=== PATIENT | male | born 1955 | race Caucasian/White ===

== ENCOUNTER 2018-10-02 00:51 | Emergency (ER) | payer OTHER ==
[~2018-10-02] VITALS: Ht 170.2 cm; Wt 80.3 kg
[~2018-10-02 00:51] MED LIST: ALBUTEROL2.5 MG/3 M INH; CLARITIN10 MG PO; EFFEXOR XR37.5 MG PO; LISINOPRIL40 MG PO; METHOCARBAMOL500 MG PO; METOPROLOL TART25 MG PO; PRILOSEC20 MG PO; PROAIR HFA8.5 GM IH; SERTRALINE HCL50 MG PO; SIMVASTATIN80 MG PO; SINGULAIR10 MG PO; TERBINAFINE HC250 MG PO
== END 2018-10-02 02:49 | disposition home or self-care (01) ==
LOC: ED 00:51
DX: F10.129 Alcohol abuse with intoxication, unspecified (principal); I10 Essential (primary) hypertension; Z88.2 Allergy status to sulfonamides; Z88.0 Allergy status to penicillin; Z91.018 Allergy to other foods; Z91.048 Other nonmedicinal substance allergy status; Z91.013 Allergy to seafood; Z79.899 Other long term (current) drug therapy
CPT/HCPCS: 80053; 85025; 96360; 99284-25; G0480; J7030

== ENCOUNTER 2020-03-01 15:07 | Emergency (ER) | payer OTHER ==
[~2020-03-01] VITALS: Ht 170.2 cm; Wt 80.3 kg
[2020-03-01] MEDS ORDERED: DECADRON4 MG PO (19:30)
[2020-03-01] MEDS ORDERED: ONDANSETRON ODT8 MG PO (19:30)
== END 2020-03-01 20:06 | disposition home or self-care (01) ==
LOC: ED 15:07
DX: U07.1 COVID-19 (principal); J45.901 Unspecified asthma with (acute) exacerbation; I10 Essential (primary) hypertension; Z88.2 Allergy status to sulfonamides; Z88.8 Allergy status to other drugs, medicaments and biological substances; Z91.018 Allergy to other foods; Z88.0 Allergy status to penicillin; Z91.013 Allergy to seafood; Z79.899 Other long term (current) drug therapy
CPT/HCPCS: 71045; 80053; 83880; 84484; 85025; 85379; 96374; 96375; 99285-25; C9803; J1100; J2405; J7030; U0003

== ENCOUNTER 2020-04-04 18:49 | Emergency (ER) | payer OTHER ==
[~2020-04-04] VITALS: Ht 170.2 cm; Wt 77.1 kg
[~2020-04-04 18:49] MED LIST changes: +DECADRON4 MG PO; +ONDANSETRON ODT8 MG PO
== END 2020-04-04 21:08 | disposition home or self-care (01) ==
LOC: ED 18:49
DX: G43.909 Migraine, unspecified, not intractable, without status migrainosus (principal); I10 Essential (primary) hypertension; J45.909 Unspecified asthma, uncomplicated; Z88.2 Allergy status to sulfonamides; Z88.8 Allergy status to other drugs, medicaments and biological substances; Z88.0 Allergy status to penicillin; Z91.018 Allergy to other foods; Z79.899 Other long term (current) drug therapy
CPT/HCPCS: 70450; 71045; 80053; 85025; 96374; 96375; 99284-25; J1200; J1885; J2765; J7030

== ENCOUNTER 2020-09-05 11:27 | Emergency (ER) | payer OTHER ==
[2020-09-05] MEDS ORDERED: METOPROLOL SUCC50 MG PO (15:15)
[2020-09-05] MEDS ORDERED: VENTOLIN HFA18 GM INH (15:15)
[2020-09-05] MEDS ORDERED: LOSARTAN POTAS100 MG PO (15:15)
[2020-09-05] MEDS ORDERED: CHLORDIAZEPOXID25 MG PO (15:15)
--- NOTE | 2020-09-06 10:54 | EKG ---
[facility] [address] [facility] [place], [place] [address] Signed Sinus tachycardia Left axis deviation Anterior infarct , age undetermined Abnormal ECG When compared with ECG of 02-SEP-2016 16:05, Vent. rate has increased BY 65 BPM Questionable change in QRS duration Anterior infarct is now present Confirmed by TRISTIN NIEVES DO ([id number]) on 09/06/2020 10:54:44 AM Electronically Signed By: TRISTIN NIEVES DO 09/06/20 1054 PATIENT NAME: FAVIOLA VO Electrocardiogram DATE OF : 53 PHYSICIAN: TRISTIN NIEVES DO REPORT #: [id number] REPORT IS CONFIDENTIAL AND NOT TO BE RELEASED WITHOUT AUTHORIZATION
== END 2020-09-05 15:30 | disposition home or self-care (01) ==
LOC: ED 11:27
DX: F10.129 Alcohol abuse with intoxication, unspecified (principal); Y90.7 Blood alcohol level of 200-239 mg/100 ml; I10 Essential (primary) hypertension; J45.909 Unspecified asthma, uncomplicated; Z88.2 Allergy status to sulfonamides; Z88.0 Allergy status to penicillin; Z91.013 Allergy to seafood; Z91.018 Allergy to other foods; Z79.899 Other long term (current) drug therapy
CPT/HCPCS: 70450; 80053; 85025; 93005; 93010; 99284-25; J7030

== ENCOUNTER 2022-09-08 14:07 | Emergency (ER) | payer MEDICARE ==
[~2022-09-08] VITALS: Ht 170.2 cm; Wt 73.0 kg
[~2022-09-08 14:07] MED LIST changes: +CHLORDIAZEPOXID25 MG PO; +LOSARTAN POTAS100 MG PO; +METOPROLOL SUCC50 MG PO; +VENTOLIN HFA18 GM INH
[2022-09-08] MEDS ORDERED: ONDANSETRON ODT8 MG PO (18:59)
[2022-09-08] MEDS ORDERED: CHLORDIAZEPOXID25 MG PO (18:59)
[2022-09-08 19:35] VITALS: BP 154/96
== END 2022-09-08 19:38 | disposition home or self-care (01) ==
LOC: ED 14:07
DX: F10.10 Alcohol abuse, uncomplicated (principal); Y90.8 Blood alcohol level of 240 mg/100 ml or more; I10 Essential (primary) hypertension; J45.909 Unspecified asthma, uncomplicated; Z88.2 Allergy status to sulfonamides; Z91.018 Allergy to other foods; Z88.0 Allergy status to penicillin; Z91.013 Allergy to seafood
CPT/HCPCS: 36415; 71045; 80053; 81001; 85025; 99284-25; A9270; G0480; J7030

== ENCOUNTER 2022-09-17 19:09 | Emergency (ER) | payer MEDICARE ==
[~2022-09-17] VITALS: Ht 170.2 cm; Wt 75.3 kg
--- OUTSIDE RECORDS SUMMARY | 2022-09-17 19:14 | XMS ---
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 EGiovanna VISIT COUNT (12 MO.) 2 [facility] TOTAL 2 NOTE: Visits indicate total known visits. ED/UCC VISIT TRACKING (12 MO.) 09/17/2022 19:12 AL[facility] Salgado [place] TYPE: Emergency COMPLAINT: - BREATHING AND HEART RATE OFF 09/08/2022 14:08 AL[facility] Salgado [place] TYPE: Emergency COMPLAINT: - DIFFICULTY BREATHING DIAGNOSES: - Alcohol abuse, uncomplicated - Allergy status to penicillin - Allergy status to sulfonamides - Allergy to other foods - Allergy to seafood - Blood alcohol level of 240 mg/100 ml or more - Essential (primary) hypertension - Shortness of breath - Unspecified asthma, uncomplicated INPATIENT VISIT TRACKING (12 MO.) No inpatient visits to display in this time frame [email or web address]
[2022-09-17] MEDS ORDERED: LOSARTAN-HCTZ1 EAC1 PO (19:22)
[2022-09-17] MEDS ORDERED: VENLAFAXINE H37.5 MG PO (19:22)
[2022-09-17] MEDS ORDERED: MONTELUKAST SOD10 MG PO (19:24)
[2022-09-17] MEDS ORDERED: LIPITOR80 MG PO (19:24)
[2022-09-17] MEDS ORDERED: BISOPROLOL FUMA10 MG PO (19:24)
[2022-09-17] MEDS ORDERED: FLONASE ALLERG9.9 ML NAS (21:37)
[2022-09-17 21:50] VITALS: BP 152/83
--- NOTE | 2022-09-18 07:24 | EKG ---
[facility] [address] [place] [address] Signed Sinus bradycardia Left axis deviation Abnormal ECG When compared with ECG of 05-SEP-2020 13:27, Vent. rate has decreased BY 74 BPM Confirmed by EDIN SIDDIQUI MD ([id number]) on 09/18/2022 7:24:12 AM Electronically Signed By: EDIN SIDDIQUI MD 09/18/22 0724 PATIENT NAME: FAVIOLA VO Electrocardiogram DATE OF : 53 PHYSICIAN: EDIN SIDDIQUI MD REPORT #: [id number] REPORT IS CONFIDENTIAL AND NOT TO BE RELEASED WITHOUT AUTHORIZATION
== END 2022-09-17 21:50 | disposition home or self-care (01) ==
LOC: ED 19:09
DX: I16.0 Hypertensive urgency (principal); I10 Essential (primary) hypertension; J45.909 Unspecified asthma, uncomplicated; Z88.0 Allergy status to penicillin; Z91.013 Allergy to seafood; Z88.2 Allergy status to sulfonamides; Z88.8 Allergy status to other drugs, medicaments and biological substances; Z91.018 Allergy to other foods; Z91.048 Other nonmedicinal substance allergy status; Z79.899 Other long term (current) drug therapy
CPT/HCPCS: 36415; 71045; 80053; 81001; 83880; 84484; 85025; 93005; 93010; 96374; 99284-25; J0360

== ENCOUNTER 2023-03-30 22:07 | Emergency (ER) | payer OTHER, MEDICARE ==
[~2023-03-30] VITALS: Ht 170.2 cm; Wt 75.3 kg
[~2023-03-30 22:07] MED LIST changes: +BISOPROLOL FUMA10 MG PO; +FLONASE ALLERG9.9 ML NAS; +LIPITOR80 MG PO; +LOSARTAN-HCTZ1 EAC1 PO; +MONTELUKAST SOD10 MG PO; +VENLAFAXINE H37.5 MG PO
[2023-03-31 05:20] VITALS: BP 130/95
== END 2023-03-31 05:20 | disposition home or self-care (01) ==
LOC: ED 22:07
DX: S01.81XA Laceration without foreign body of other part of head, initial encounter (principal); I10 Essential (primary) hypertension; E78.00 Pure hypercholesterolemia, unspecified; J45.909 Unspecified asthma, uncomplicated; Z79.899 Other long term (current) drug therapy; Z88.0 Allergy status to penicillin; Z88.2 Allergy status to sulfonamides; Z88.8 Allergy status to other drugs, medicaments and biological substances; Z91.013 Allergy to seafood; Z91.018 Allergy to other foods; Z91.048 Other nonmedicinal substance allergy status; W18.30XA Fall on same level, unspecified, initial encounter
CPT/HCPCS: 70450; 72125; 90715

== ENCOUNTER 2024-02-07 05:41 | Day surgery (SDC) | payer MEDICARE, BC ==
[2024-02-01 11:26] VITALS: BP 123/89
[~2024-02-07] VITALS: Ht 170.2 cm; Wt 77.3 kg
[~2024-02-07 05:41] MED LIST changes: +LACTATED RINGER'S 1,000 ML IV SCH; +PREDNISOLONE ACE5 M1 OP; +PRILOSEC OTC20 MG PO; +ZESTRIL10 MG
[2024-02-07 06:02] VITALS: BP 119/81
[2024-02-07] MEDS ORDERED: VENTOLIN HFA18 GM INH (06:06)
[2024-02-07] MEDS ORDERED: IBLOOD GLUCOSE TEST STRIP 1 EA TEST VI PRN (07:00)
[2024-02-07] MEDS ORDERED: LIDOCAINE HCL 1% 5 ML SDV INJ ONE (07:00)
[2024-02-07] MEDS ORDERED: LIDOCAINE HCL 2% 5 ML SDV ONE (07:25)
[2024-02-07] MEDS ORDERED: propofoL 200 MG/20 ML VIAL ONE ×2 (07:25→08:05)
[2024-02-07] MEDS ORDERED: GLYCOPYRROLATE 1 MG/5 ML MDV ONE (08:05)
[2024-02-07 08:49] VITALS: BP 142/98
--- NOTE | 2024-02-07 09:19 | NUR ---
02/07/24 0919 Ramona Mathews 0812- PT ARRIVES TO THE PACU WITH A NATURAL AIRWAY AND 2L OF O2 WITH A NC. PT IS LAYING ON LEFT SIDE. RESP EVEN AND UNLABORED. PT IS NOT REACTIVE TO VERBAL AND TACTILE STIMULI. ALL MONITORS PU TIN PLACE. VSS. ABDOMEN SOFT AND NONDISTENDED. 0824-PT OPENS EYES WITH NO STIMULI. PT REORIENTED PT PACU. O2 REMOVED AND TURNED OFF. PT DENIES PAIN AND NAUSEA. 0825- MD AT BEDSIDE TALKING WITH PT. 0837- HOB INCREASED AND PT SIPPING ON WATER. PT HAS SOME DIZZINESS AND ENCOURAGED TO MOVE SLOW. 0840- DC INSTRUCTIONS GIVEN. NO QUESTIONS OR CONCERNS. PT GETTING DRESSED INDEPENDENTLY WITH NO ISSUE. 0859- PT DC'D FROM PACU. PT BROUGHT TO IN THE FRONT OF THE HOSPITAL. PT SITTING IN FRONT WITH GAIT IS STEADY AND EVEN. WEB SITE SPECIALIST TO CALL FOR RIDE. ALL BELONGINGS WITH PT.
--- NOTE | 2024-02-07 12:16 | OR ---
[facility] [address] [place], [place] [address] Signed DATE OF OPERATION: 02/07/2024 SURGEON: Karyna Vasquez MD PREOPERATIVE DIAGNOSES: 1. Dysphagia and weight loss. 2. CT scan findings of thickened distal esophagus. POSTOPERATIVE DIAGNOSES: 1. No evidence of esophageal neoplasm. 2. Mild chronic distal esophageal stricture and midesophageal felinization. 3. Duodenitis. PROCEDURES: 1. Esophagogastroduodenoscopy with biopsy. 2. Esophageal dilation by Amauri over the wire technique single pass 51-Icelandic. ANESTHESIA: Intravenous sedation propofol; Jaye Smith CRNA. INDICATION: This 68-year-old white man is a patient of Dr. Arora. He presented to the emergency room in September with significant dysphagia. This was on October 08, 2023. The patient canceled the visit planned soon after that evaluation and is seen recently by me on January 17, 2024. The patient describes a 15-pound weight loss over the past several months. A CT scan had been performed showing a small hiatal hernia and circumferential thickening of the distal esophagus. He had moderate coronary artery atherosclerosis as well. He has been on a PPI medication since that time. He continues to have some solid-food dysphagia, but no dysphagia to liquids. The patient does have dentures, but he does not use them and notes that his swallowing problems are worsened when he does not chew his food well, which is usual. He has significant shortness of breath and COPD and uses an inhaler. Administration of omeprazole has had no significant improvement to his dysphagia he says. He is admitted at this time to undergo upper endoscopy and possible dilation. He understands the risk of bleeding, infection, and perforation. FINDINGS: He did not have esophageal neoplasm. There is low-grade distal esophageal stricture, but nothing particularly worrisome in appearance. There appeared to be mild felinization of the mid esophagus and the possibility of eosinophilic esophagitis is also considered. He did have duodenitis but no ulcer. CLOtest was equivocal 15 minutes Electronically Signed By: KARYNA VASQUEZ MD 02/07/24 1216 PATIENT NAME: FAVIOLA VO OPERATIVE REPORT DATE OF : 53 REPORT #: [id number] PHYSICIAN: KARYNA VASQUEZ MD PCP: TEE ARORA MD REPORT IS CONFIDENTIAL AND NOT TO BE RELEASED WITHOUT AUTHORIZATION [facility] [address] [place], [place] [address] Signed post procedure. Esophageal dilation to 51-Icelandic with an over the wire [place] Citizen dilator system was undertaken without complication. PROCEDURE IN DETAIL: The patient was brought to the surgical endoscopy suite, placed in the lateral decubitus position. A bite block was placed and he was given intravenous sedation by the state appellate clerk with propofol infusional technique. Airway support was important as he does have some desaturation with sedation. An Olympus video upper endoscope was passed in the hypopharynx. The vocal cords were normal. Scope was advanced to the esophagus. Passage to the esophagus was without impediment. There was no gross lesion on the distal esophagus upon passage of the scope. Entry to the stomach showed mild chronic gastritis but prepyloric erosive changes. The pylorus itself was widely patent without distortion or obstruction. Scope was passed in the duodenum, which clearly showed duodenitis. There was no ulceration however. Biopsies were taken of the duodenum. The scope was withdrawn and biopsies taken of the antrum for both FRED and pathologic testing. Retroflexed view was undertaken showing a marginal flap valve but no sign of large hiatal hernia proper. The scope was withdrawn to the distal esophagus and careful inspection showed no sign of neoplasm or Acosta's epithelium per se. Withdrawal of scope to the midesophagus showed mild felinization and the possibility of eosinophilic esophagitis is also considered. Biopsies were then taken of the distal esophagus and mid esophagus. The scope was advanced once again to the antrum and a coil spring tipped wire from the [place] Citizen over the wire dilator system passed through the operating channel of the scope. The wire was stabilized and the scope carefully withdrawn and removed. A 51-Icelandic [place] Citizen over the wire dilator was then passed over the wire markedly lubricated and advanced over the wire to the appropriate distance. The scope and the wire were then removed in continuity. The bite block was replaced and the scope once again passed down the esophagus showing no sign of complication. The esophagus appeared widely patent and open. The patient was ultimately allowed to emerge from sedation, then taken to the recovery room in good condition. CONCLUDING DIAGNOSES: 1. Duodenitis with associated antral gastritis. Mild distal esophagitis and low-grade stricture (dilated). 2. Midesophageal felinization suspicious though not diagnostic for eosinophilic esophagitis. PLAN: He will continue with his omeprazole as prescribed. I will see him back in the office in 4 to 6 weeks and we will assess his improvement or lack thereof from dilation. If biopsy should show eosinophilic esophagitis, appropriate therapy would be initiated. Electronically Signed By: KARYNA VASQUEZ MD 02/07/24 1216 PATIENT NAME: FAVIOLA VO OPERATIVE REPORT DATE OF : 53 REPORT #: [id number] PHYSICIAN: KARYNA VASQUEZ MD PCP: TEE ARORA MD REPORT IS CONFIDENTIAL AND NOT TO BE RELEASED WITHOUT AUTHORIZATION [facility] [address] [place], [place] [address] Signed MD CHRISTINE Espinal/MISHEL /[id number] cc: Dr. Arora Copies: ~ Electronically Signed By: KARYNA VASQUEZ MD 02/07/24 1216 PATIENT NAME: FAVIOLA VO J OPERATIVE REPORT DATE OF : 53 REPORT #: [id number] PHYSICIAN: KARYNA VASQUEZ MD PCP: TEE ARORA MD REPORT IS CONFIDENTIAL AND NOT TO BE RELEASED WITHOUT AUTHORIZATION
--- NOTE | 2024-02-08 13:08 | PATH ---
[facility] [address] [place], [place] [address] Signed SPECIMEN(S): A DUODENUM BIOPSY SPECIMEN(S): B ANTRUM BIOPSY SPECIMEN(S): C DISTAL ESOPHAGUS BIOPSY SPECIMEN(S): D MID ESOPHAGUS BIOPSY SPECIMEN SOURCE: A. DUODENUM BIOPSY B. ANTRUM BIOPSY C. DISTAL ESOPHAGUS BIOPSY D. MID ESOPHAGUS BIOPSY CLINICAL HISTORY: Dysphagia FINAL PATHOLOGIC DIAGNOSIS: A. Duodenum biopsy: - Benign duodenal mucosa, negative for specific diagnostic abnormality. B. Antrum biopsy: - Benign gastric mucosa with focal slight chronic inflammation. - Negative for evidence of Helicobacter organisms on routine HE stained sections. - Fragments of benign duodenal mucosa, negative for pathologic inflammation. C. Distal esophagus biopsy: - Benign esophageal and gastric mucosa with minimal inflammation. - Negative for increased epithelial eosinophils. - Negative for specialized intestinal metaplasia on scant glandular epithelium. D. Mid esophagus biopsy: - Benign esophageal epithelium, negative for increased epithelial eosinophils. JVR:slc MICROSCOPIC EXAMINATION: Histologic sections of all submitted blocks are examined by light microscopy. These findings, together with the gross examination, support the pathologic diagnosis. GROSS DESCRIPTION: A. The specimen, labeled and designated "[place], duodenum biopsy," is received in formalin and consists of one ellis soft tissue fragment, 0.2 cm. Entirely submitted in (A1). B. The specimen, labeled and designated "[place], antrum biopsy," is PATIENT NAME: FAVIOLA VO PATHOLOGY DATE OF : 53 REPORT #: [id number] PHYSICIAN: [employer] PATHOLOGY PCP: TEE ARORA MD REPORT IS CONFIDENTIAL AND NOT TO BE RELEASED WITHOUT AUTHORIZATION [facility] [address] [place], [place] [address] Signed received in formalin and consists of three ellis soft tissue fragments, ranging from 0.3-0.7 cm. Entirely submitted in (B1). C. The specimen, labeled and designated "[place], distal esophagus biopsy," is received in formalin and consists of two ellis soft tissue fragments, ranging from 0.2-0.3 cm. Entirely submitted in (C1). D. The specimen, labeled and designated "[place], mid esophagus biopsy," is received in formalin and consists of two ellis soft tissue fragments, ranging from 0.2-0.3 cm. Entirely submitted in (D1). VB (under the direct supervision of a pathologist) The Gross Description was prepared using a voice recognition system. The report was reviewed for accuracy; however, sound-alike word errors, addition and/or deletions may occur. If there is any question about this report, please contact Client Services. PERFORMING LABORATORY: Technical component was performed by [facility], [address] [place] [id number] (CLIA# [id number]). Professional interpretation was performed by [facility] - [facility], [address] [place] [id number] (CLIA#: [id number]). Diagnostician: Misael Gomez MD Pathologist Electronically Signed 02/08/2024 Copies: ~ PATIENT NAME: FAVIOLA VO PATHOLOGY DATE OF : 53 REPORT #: [id number] PHYSICIAN: [facility] PCP: TEE ARORA MD REPORT IS CONFIDENTIAL AND NOT TO BE RELEASED WITHOUT AUTHORIZATION
== END 2024-02-07 08:59 | disposition home or self-care (01) ==
LOC: DS 05:41 → OPS 05:41 → DS 10:00 → OPS 10:00
PROVIDERS: ATTEND Surgery
PROC: 0DB68ZX Excision of Stomach, Via Natural or Artificial Opening Endoscopic, Diagnostic (ICD-10-PCS; 2024-02-07)
PROC: 0DB28ZX Excision of Middle Esophagus, Via Natural or Artificial Opening Endoscopic, Diagnostic (ICD-10-PCS; 2024-02-07)
PROC: 0DB38ZX Excision of Lower Esophagus, Via Natural or Artificial Opening Endoscopic, Diagnostic (ICD-10-PCS; 2024-02-07)
PROC: 0DB98ZX Excision of Duodenum, Via Natural or Artificial Opening Endoscopic, Diagnostic (ICD-10-PCS; principal; 2024-02-07 07:30)
DX: K29.80 Duodenitis without bleeding (principal); K29.50 Unspecified chronic gastritis without bleeding; K22.2 Esophageal obstruction; J44.9 Chronic obstructive pulmonary disease, unspecified; I10 Essential (primary) hypertension; K21.00 Gastro-esophageal reflux disease with esophagitis, without bleeding; F10.10 Alcohol abuse, uncomplicated; R63.4 Abnormal weight loss
CPT/HCPCS: 00813; 88305; J2003; J2704; J7121

== ENCOUNTER 2024-03-25 15:51 | Emergency (ER) | payer MEDICARE, BC ==
[~2024-03-25] VITALS: Ht 170.2 cm; Wt 81.4 kg
[~2024-03-25 15:51] MED LIST changes: -LACTATED RINGER'S 1,000 ML IV SCH
[2024-03-25 16:13] LABS: BASOPHILS 1.2 % (0-2); EOSINOPHILS 5.3 % (0-6); HEMATOCRIT 45.3 % (35.0-50.0); HEMOGLOBIN 15.9 g/dL (12.0-18.0); LYMPHOCYTES 29.2 % (24-44); MCH 31.5 (27-36); MCHC 35.2 g/dl (30-36); MCV 89.4 fl (81-99); MONOCYTES 6.5 % (0-12); NEUTROPHILS 57.8 % (39-80); PLATELET COUNT 229 K/uL (140-440); RBC 5.06 M/ul (4.3-5.7)
[2024-03-25 16:23] LABS: INR 1.09 (0.80-1.30); PROTIME 13.7 Sec (11.2-14.2)
[2024-03-25 16:25] LABS: PARTIAL THROMBOPLASTIN TIME 25.3 Sec (22.9-41.3)
[2024-03-25 16:31] LABS: ALBUMIN 3.6 g/dL (3.4-5.0); ALBUMIN/GLOBULIN RATIO 1.2 (1.1-2.4); ANION GAP 15.9 (7-21); BILIRUBIN, TOTAL 0.2 ng/dL (0.2-1.0); CALCIUM 8.3 mg/dL (8.5-10.1); POTASSIUM 3.9 mmol/L (3.5-5.1); PROTEIN, TOTAL 6.6 g/dL (6.4-8.2)
[2024-03-25 17:13] LABS: BILIRUBIN, URINE NEGATIVE (negative); BLOOD/HGB, URINE NEGATIVE (Negative); KETONE, URINE NEGATIVE (Negative); LEUK ESTERASE, URINE NEGATIVE (negative); NITRITE, URINE NEGATIVE (negative); PH, URINE 5.5 (5-7)
[2024-03-25 17:18] LABS: BACTERIA, URINE NONE SEEN /hpf (negative); CASTS, URINE NONE SEEN \\lpf; COLLECTION TYPE, URINE CLEAN CATCH; CRYSTALS, URINE NONE SEEN (0-1+); EPITHELIAL CELLS, URINE SQUAMOUS 1+ /lpf (0-1+); RED BLOOD CELLS, URINE 0-1 /hpf (0-5); WHITE BLOOD CELLS, URINE 0-1 /HPF (0-5)
[2024-03-25 17:19] LABS: REFLEX CULTURE, URINE No (No)
[2024-03-25 17:30] LABS: AMPHETAMINES, URINE NEGATIVE (NEGATIVE); BARBITURATES, URINE NEGATIVE (NEGATIVE); BENZODIAZEPINE, URINE NEGATIVE (NEGATIVE); BUPRENORPHINE, URINE NEGATIVE (NEGATIVE); CANNABINOID, URINE NEGATIVE (NEGATIVE); COCAINE, URINE NEGATIVE (NEGATIVE); ECSTASY, URINE NEGATIVE (NEGATIVE); FENTANYL, URINE NEGATIVE (NEGATIVE); METHADONE, URINE NEGATIVE (NEGATIVE); OPIATES, URINE NEGATIVE (NEGATIVE); OXYCODONE, URINE NEGATIVE (NEGATIVE); PHENCYCLIDINE, URINE NEGATIVE (NEGATIVE)
[2024-03-25 20:00] VITALS: BP 146/99
--- NOTE | 2024-03-25 21:01 | EKG ---
[facility] [address] [facility] [place] [address] Signed Normal sinus rhythm with sinus arrhythmia Left axis deviation Inferior infarct , age undetermined Abnormal ECG No previous ECGs available Confirmed by Angel Harley MD ([id number]) on 03/25/2024 9:01:36 PM Electronically Signed By: ANGEL HARLEY DO 03/25/242100 PATIENT NAME: YELENASRINIVASAFRANDariuszFAVIOLA Electrocardiogram DATE OF : 53 PHYSICIAN: ANGEL HARLEY DO REPORT #: [id number] REPORT IS CONFIDENTIAL AND NOT TO BE RELEASED WITHOUT AUTHORIZATION
== END 2024-03-25 20:00 | disposition home or self-care (01) ==
LOC: ED 15:51
PROVIDERS: Emergency Medicine
DX: F10.929 Alcohol use, unspecified with intoxication, unspecified (principal); Y90.8 Blood alcohol level of 240 mg/100 ml or more; I10 Essential (primary) hypertension; J45.909 Unspecified asthma, uncomplicated; Z88.0 Allergy status to penicillin; Z88.2 Allergy status to sulfonamides; Z91.013 Allergy to seafood; Z91.018 Allergy to other foods; Z91.048 Other nonmedicinal substance allergy status; Z79.899 Other long term (current) drug therapy
CPT/HCPCS: 36415; 70450; 70496; 70498; 71045; 80053; 80307; 81001; 84484; 85025; 85610; 85730; 93005; 93010; 99285-25; G0480; Q9967

== ENCOUNTER 2024-07-31 00:27 | Emergency (ER) | payer MEDICARE ==
[~2024-07-31] VITALS: Ht 170.2 cm; Wt 71.1 kg
[2024-07-31 01:08] LABS: BASOPHILS 0.9 % (0-2); EOSINOPHILS 8.6 % (0-6); HEMATOCRIT 47.1 % (35.0-50.0); HEMOGLOBIN 16.6 g/dL (12.0-18.0); LYMPHOCYTES 28.9 % (24-44); MCH 32.3 (27-36); MCHC 35.3 g/dl (30-36); MCV 91.6 fl (81-99); MONOCYTES 10.1 % (0-12); NEUTROPHILS 51.5 % (39-80); PLATELET COUNT 142 K/uL (140-440); RBC 5.15 M/ul (4.3-5.7); RDW 15.5 (10.5-15.0)
[2024-07-31 01:22] LABS: ALBUMIN 3.7 g/dL (3.4-5.0); ALBUMIN/GLOBULIN RATIO 1.32 (1.1-2.4); ANION GAP 12.2 (7-21); BILIRUBIN, TOTAL 0.4 mg/dL (0.2-1.0); BUN/CREATININE RATIO 12.9 (6.0-28.6); CALCIUM 8.5 mg/dL (8.5-10.1); CREATININE, SERUM 0.93 mg/dL (0.70-1.30); MAGNESIUM 1.9 mg/dL (1.8-2.4); POTASSIUM 3.2 mmol/L (3.5-5.1); PROTEIN, TOTAL 6.5 g/dL (6.4-8.2)
[2024-07-31] MEDS ORDERED: NALTREXONE HCL50 MG PO (02:41)
[2024-07-31 03:05] VITALS: BP 114/81
== END 2024-07-31 03:04 | disposition home or self-care (01) ==
LOC: ED 00:27
PROVIDERS: Family Medicine
DX: F10.129 Alcohol abuse with intoxication, unspecified (principal); I10 Essential (primary) hypertension; J45.909 Unspecified asthma, uncomplicated
CPT/HCPCS: 36415; 80053; 83735; 85025; 99284

== ENCOUNTER 2024-08-30 13:24 | Emergency (ER) | payer MEDICARE ==
[~2024-08-30] VITALS: Ht 170.2 cm; Wt 73.3 kg
[~2024-08-30 13:24] MED LIST changes: +NALTREXONE HCL50 MG PO
--- OUTSIDE RECORDS SUMMARY | 2024-08-30 13:31 | XMS ---
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 Gema has no Care Guidelines for this patient. Chelsey VISIT COUNT (12 MO.) 4 [facility] TOTAL 4 NOTE: Visits indicate total known visits. ED/[facility] VISIT TRACKING (12 MO.) [facility] [place] [facility] COMPLAINT: - DIFFICULT BREATHING 07/31/2024 00:28 [facility] [place] TYPE: Emergency COMPLAINT: - FALL DIAGNOSES: - Alcohol abuse with intoxication, unspecified - Essential (primary) hypertension - Unspecified asthma, uncomplicated 03/25/2024 15:51 [facility] [place] TYPE: Emergency COMPLAINT: - FALL DIAGNOSES: - Alcohol use, unspecified with intoxication, unspecified - Allergy status to penicillin - Allergy status to sulfonamides - Allergy to other foods - Allergy to seafood - Blood alcohol level of 240 mg/100 ml or more - Diplopia - Essential (primary) hypertension - Other shelter (current) drug therapy - Other nonmedicinal substance allergy status - Unspecified asthma, uncomplicated 10/08/2023 12:28 [facility] [place] TYPE: Emergency COMPLAINT: - THROAT ISSUES DIAGNOSES: - Allergy status to other drugs, medicaments and biological substances - Allergy status to penicillin - Allergy status to sulfonamides - Allergy to other foods - Allergy to seafood - Diaphragmatic hernia without obstruction or gangrene - Dysphagia, unspecified - Esophageal obstruction - Essential (primary) hypertension - Gastro-esophageal reflux disease without esophagitis - 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
[2024-08-30] MEDS ORDERED: IPRATROPIUM BROMIDE 2.5 ML VIAL INH ONE (13:45)
[2024-08-30 13:48] LABS: BASOPHILS 1.3 % (0.2-1.2); EOSINOPHILS 5.4 % (0.8-7.0); HEMATOCRIT 47.5 % (40.1-51.0); HEMOGLOBIN 16.2 g/dL (13.7-17.5); MCH 31.4 PG (25.7-32.2); MCHC 34.1 g/dL (32.3-36.5); MCV 92.1 fL (79.0-92.2); MONOCYTES 6.5 % (5.3-12.2); NEUTROPHILS 53.9 % (34.0-67.9); PLATELET COUNT 206 K/uL (163-337); RBC 5.16 M/uL (4.63-6.08)
[2024-08-30 14:05] LABS: ALBUMIN 3.5 g/dL (3.4-5.0); ALBUMIN/GLOBULIN RATIO 1.13 (1.1-2.4); ANION GAP 14.1 (7-21); BILIRUBIN, TOTAL 0.2 mg/dL (0.2-1.0); BUN/CREATININE RATIO 16.12 (6.0-28.6); CALCIUM 8.1 mg/dL (8.5-10.1); CREATININE, SERUM 0.93 mg/dL (0.70-1.30); POTASSIUM 3.1 mmol/L (3.5-5.1); PROTEIN, TOTAL 6.6 g/dL (6.4-8.2)
[2024-08-30] MEDS ORDERED: ALBUTEROL/IPRATROPIUM 3 ML NEB INH ONE (14:15)
[2024-08-30 16:04] VITALS: BP 121/76
--- NOTE | 2024-08-30 21:40 | EKG ---
[facility] [address] [place] [address] Signed Normal sinus rhythm with sinus arrhythmia Left axis deviation Abnormal ECG When compared with ECG of 25-MAR-2024 16:09, No significant change was found Confirmed by Wilman Fink MD () on 08/30/2024 9:40:26 PM Electronically Signed By: WILMAN FINK MD 08/30/242139 PATIENT NAME: YELENASHERWINFAVIOLA Electrocardiogram DATE OF : 53 PHYSICIAN: WILMAN FINK MD REPORT #: [id number] REPORT IS CONFIDENTIAL AND NOT TO BE RELEASED WITHOUT AUTHORIZATION
== END 2024-08-30 16:06 | disposition home or self-care (01) ==
LOC: ED 13:24
PROVIDERS: Emergency Medicine
DX: F10.129 Alcohol abuse with intoxication, unspecified (principal); Y90.8 Blood alcohol level of 240 mg/100 ml or more; I10 Essential (primary) hypertension; J45.909 Unspecified asthma, uncomplicated; Z91.013 Allergy to seafood; Z91.018 Allergy to other foods; Z91.010 Allergy to peanuts; Z79.899 Other long term (current) drug therapy; Z88.0 Allergy status to penicillin
CPT/HCPCS: 36415; 70450; 71045; 80053; 83880; 84484; 85025; 93005; 93010; 94640; 99285-25; G0480

== ENCOUNTER 2025-03-06 17:12 | Observation (INO) | payer MEDICARE ==
[~2025-03-06] VITALS: Ht 170.2 cm; Wt 77.3 kg
[~2025-03-06 17:12] MED LIST changes: +SEVOFLURANE 250 ML BTL INH ONE
[2025-03-06] MEDS ORDERED: GLUCAGON,HUMAN RECOMBINANT 1 MG/ML VIAL IV ONE (17:30)
[2025-03-06] MEDS ORDERED: NITROGLYCERIN 0.4 MG SUBL SL ONE (17:45)
[2025-03-06 17:46] LABS: BASOPHILS 1.1 % (0.2-1.2); EOSINOPHILS 2.3 % (0.8-7.0); LYMPHOCYTES 15.1 % (21.8-53.1); MCH 33.1 PG (25.7-32.2); MCHC 35.2 g/dL (32.3-36.5); MCV 94.1 fL (79.0-92.2); MONOCYTES 8.5 % (5.3-12.2); NEUTROPHILS 72.6 % (34.0-67.9); RBC 5.07 M/uL (4.63-6.08)
[2025-03-06 18:03] LABS: ALT (SGPT) 38.0 U/L (14-59); AST (SGOT) 31.0 U/L (15-37); GLOMERULAR FILTRATION RATE,EST 78.0 mL/min (>60); PROTEIN, TOTAL 7.3 g/dL (6.4-8.2); UREA NITROGEN 16.0 mg/dL (7-18)
[2025-03-06] MEDS ORDERED: LACTATED RINGER'S 1,000 ML IV ONE (18:45)
[2025-03-06] MEDS ORDERED: LIDOCAINE HCL 2% 5 ML SDV ONE (19:21)
[2025-03-06] MEDS ORDERED: ROCURONIUM BROMIDE 50 MG/5 ML SYR ONE (19:43)
[2025-03-06] MEDS ORDERED: SUGAMMADEX SODIUM 200 MG/2 ML ML ONE (19:43)
[2025-03-06] MEDS ORDERED: fentaNYL citrate 100 MCG/2 ML VIAL ONE (20:29)
[2025-03-06] MEDS ORDERED: SUCCINYLCHOLINE IN 0.9% NACL 200 MG/10 ML SYRINGE ONE (20:29)
--- NOTE | 2025-03-06 21:13 | NUR ---
03/06/252112 Monica Berger 2106: PT ARRIVES TO PACU MONITOR IS CONNECTED. REPROT RECEIVED FROM OR AND DOUBLE CUT SAWYER.
[2025-03-06 21:51] VITALS: BP 161/89
--- NOTE | 2025-03-06 21:55 | NUR ---
PATIENT BROUGHT TO THE FLOOR FROM HAVING AN EGD FROM THE ER. PATIENT HAD DILATION AND BX DONE, FOOD HAD SINCE PASSED TO HIS STOMACH. NO EBL WITH PROCEDURE. PATIENT IS ABLE TO GO HOME TONIGHT AFTER ONE HOUR IF HE DRINKS AND TOLERATES CLEAR LIQUIDS, AND URINATES. PATIENT IS TO BE ON CLEAR LIQUIDS FOR 24 HOURS THEN SOFT FOODS FOR 24 HOURS AND THEN SLOWLY GO TO REGULAR DIET AFTER THAT. PATIENT HAS PULSE OX ON AND WATER AT BEDSIDE WHICH HE HAS HAD DRINKS OF AND TOLERATED WELL. DENIES PAIN. CALL LIGHT WITHIN REACH.
[2025-03-06 21:58] VITALS: BP 161/89
[2025-03-06 23:08] VITALS: BP 154/78
--- NOTE | 2025-03-06 23:21 | NUR ---
PATIENT PICKED UP BY SULLY HIS NEIGHBOR. PATIENT HAS ALL BELONGINGS, VITALS DONE. IV HAS BEEN REMOVED, CATH INTACT. PATIENT HAS BEEN HERE OVER AN HOUR, ABLE TO WALK ON HIS OWN, URINATE AND DRINK WATER. PATIENT ADVISED TO FOLLOW THE RULES ON DIET THAT WERE GIVEN TO HIM. PATIENT TAKEN OUT IN A WHEELCHAIR.
--- NOTE | 2025-03-08 13:11 | EKG ---
[facility] [address] [facility] [place] [address] Signed Normal sinus rhythm Left axis deviation Abnormal ECG When compared with ECG of 30-AUG-2024 13:51, No significant change was found Confirmed by Angel Harley DO ([id number]) on 03/08/2025 1:11:41 PM Electronically Signed By: ANGEL HARLEY DO 03/08/25 1311 PATIENT NAME: RODNEYDariuszFAVIOLA Electrocardiogram DATE OF : 53 PHYSICIAN: ANGEL HARLEY DO REPORT #: [id number] REPORT IS CONFIDENTIAL AND NOT TO BE RELEASED WITHOUT AUTHORIZATION
--- NOTE | 2025-03-11 18:39 | PATH ---
[facility] [address] [facility] [place], [place] [address] Signed SPECIMEN(S): A PYLORUS BIOPSY SPECIMEN(S): B ANTRUM BIOPSY SPECIMEN(S): C STOMACH BODY BIOPSY SPECIMEN(S): D GE JUNCTION BIOPSY SPECIMEN SOURCE: A. PYLORUS BIOPSY B. ANTRUM BIOPSY C. STOMACH BODY BIOPSY D. GE JUNCTION BIOPSY CLINICAL HISTORY: Possible esophagus foreign body. Esophageal stricture. FINAL PATHOLOGIC DIAGNOSIS: A. Pylorus biopsy: - Gastric antral-type mucosa with edema, congestion and features of reactive gastropathy. - Negative for inflammation or intestinal metaplasia. - Negative for Helicobacter pylori-like organisms on routine stain. B. Antrum biopsy: - Gastric mucosa with no significant pathologic abnormalities. - Negative for inflammation or intestinal metaplasia. C. Stomach body biopsy: - Gastric oxyntic mucosa with no significant pathologic abnormalities. - Negative for inflammation or intestinal metaplasia. D. GE junction biopsy: - Glandular, cardiac type gastric mucosa with edema, congestion, focal acute inflammation and reactive atypia. - Negative for goblet cell metaplasia. - Alcian blue stain is negative for intestinal type mucin (valid control). - Immunohistochemical stain for H. Pylori is negative for organisms (valid control). - No esophageal squamous mucosa identified. NA MICROSCOPIC EXAMINATION: Histologic sections of all submitted blocks are examined by light microscopy. These findings, together with the gross examination, support the pathologic diagnosis. PATIENT NAME: YELENAFAVIOLA COURTNEY KARYNA PATHOLOGY DATE OF : 53 REPORT #: [id number] PHYSICIAN: [facility] PCP: TEE ARORA MD REPORT IS CONFIDENTIAL AND NOT TO BE RELEASED WITHOUT AUTHORIZATION [facility] [address] [place], [place] [address] Signed GROSS DESCRIPTION: A. The specimen, labeled and designated "[place], pylorus biopsy," is received in formalin and consists of one ellis soft tissue fragment, 0.2 cm. Entirely submitted in (A1). B. The specimen, labeled and designated "[place], antrum biopsy," is received in formalin and consists of one ellis soft tissue fragment, 0.2 cm. Entirely submitted in (B1). C. The specimen, labeled and designated "[place], stomach body biopsy," is received in formalin and consists of one ellis soft tissue fragment, 0.2 cm. Entirely submitted in (C1). D. The specimen, labeled and designated "[place], GE junction biopsy," is received in formalin and consists of one ellis soft tissue fragment, 0.2 cm. Entirely submitted in (D1). JS (under the direct supervision of a pathologist) The Gross Description was prepared using a voice recognition system. The report was reviewed for accuracy; however, sound-alike word errors, addition and/or deletions may occur. If there is any question about this report, please contact Client Services. ADDITIONAL NOTES: Immunohistochemical and/or in situ hybridization studies if performed in this case included appropriate positive controls that reacted as expected. This test was developed and its performance characteristics determined by [facility]. It has not been cleared or approved by the U.S. Food and Drug Administration. The FDA has determined that such clearance or approval is not necessary. This test is used for clinical purposes. It should not be regarded as investigational or for research. [facility] is certified under the Clinical Laboratory Improvement Amendments of 1988 (CLIA) as qualified to perform high complexity clinical laboratory testing. PERFORMING LABORATORY: Technical component was performed by [facility], [address] [place] [address] (CLIA# [id number]). Professional interpretation was performed by [facility] - [facility] [address] [facility] [id number] Diagnostician: Klaudia Gallagher MD Pathologist Electronically Signed 03/11/2025 PATIENT NAME: FAVIOLA VO PATHOLOGY DATE OF : 53 REPORT #: [id number] PHYSICIAN: [facility] PCP: TEE ARORA MD REPORT IS CONFIDENTIAL AND NOT TO BE RELEASED WITHOUT AUTHORIZATION [facility] [address] [place] [id number] Signed Copies: ~ PATIENT NAME: FAVIOLA VO PATHOLOGY DATE OF : 53 REPORT #: [id number] PHYSICIAN: NYASIA BARRETT PCP: TEE ARORA MD REPORT IS CONFIDENTIAL AND NOT TO BE RELEASED WITHOUT AUTHORIZATION
== END 2025-03-06 23:11 | disposition home or self-care (01) ==
LOC: ED 17:12 → MS 17:13
PROVIDERS: Emergency Medicine; ADMIT Surgery; ATTEND Surgery
PROC: 0DB78ZX Excision of Stomach, Pylorus, Via Natural or Artificial Opening Endoscopic, Diagnostic (ICD-10-PCS; 2025-03-06)
PROC: 0D738ZZ Dilation of Lower Esophagus, Via Natural or Artificial Opening Endoscopic (ICD-10-PCS; 2025-03-06)
PROC: 0DB68ZX Excision of Stomach, Via Natural or Artificial Opening Endoscopic, Diagnostic (ICD-10-PCS; principal; 2025-03-06 20:30)
DX: K22.2 Esophageal obstruction (principal); K21.00 Gastro-esophageal reflux disease with esophagitis, without bleeding; I10 Essential (primary) hypertension; J45.909 Unspecified asthma, uncomplicated; Z91.013 Allergy to seafood; Z88.2 Allergy status to sulfonamides; Z91.018 Allergy to other foods; Z88.0 Allergy status to penicillin; Z79.899 Other long term (current) drug therapy
CPT/HCPCS: 36415; 71045; 80053; 85025; 93005; 93010; 96374; 99285-25; C1726; J0330; J1610; J2003; J2704; J3010; J3490; J7121